=== PATIENT | female | born 1985 | race African-American/Black ===

== ENCOUNTER 2020-08-02 11:53 | Outpatient (RCR) | payer OTHER, SELFPAY ==
[2020-08-04] MEDS: RHO(D) IMMUNE GLOBULIN 300 MCG SYRINGE IM (11:00)
== END 2020-10-31 23:59 | disposition home or self-care (01) ==
LOC: ANHLAB 11:53
PROVIDERS: Visit Provider Obstetrics & Gynecology
DX: O09.899 Supervision of other high risk pregnancies, unspecified trimester (principal); O36.0990 Maternal care for other rhesus isoimmunization, unspecified trimester, not applicable or unspecified; Z3A.00 Weeks of gestation of pregnancy not specified
CPT/HCPCS: 36415; 85461; 90384; 96372; J2790

== ENCOUNTER 2020-10-14 11:49 | Outpatient (RCR) | payer OTHER, SELFPAY ==
[2020-08-04] MEDS: TETANUS,DIPHTHERIA,AC PERTUSSIS ADULT (0.5 ML) BOOSTRIX IM (11:18)
[2020-08-04 11:52] VITALS: BP 122/58; PULSE 85
[2020-08-12 14:52] VITALS: BP 94/55; PULSE 86
[2020-08-17 13:03] VITALS: BP 123/64; PULSE 92
[2020-08-23 13:07] VITALS: BP 121/64; PULSE 99
[2020-08-30 14:46] VITALS: BP 126/63; PULSE 99
[2020-09-06 10:25] VITALS: BP 114/62
--- NOTE | 2020-09-17 17:12 | PC.NURSE ---
DISCUSSED THE DECEL IN THE BEGINNING OF THE TRACING AND REACTIVE AN HOUR AFTER. WILL SEND FOR BPP AND CHECK CERVIX B/C 34.5
[2020-09-17 17:28] VITALS: BP 125/72; PULSE 110
[2020-09-23 12:56] VITALS: BP 125/73; PULSE 96
[2020-10-02 11:13] VITALS: BP 114/76; PULSE 106
--- NOTE | ~2020-10-14 | US_ITS ---
EXAMINATION: US OB BPP wo non-stress EXAM DATE: 09/17/2020 17:23 INDICATION: decel in the beginning of nonstress test. 3rd trimester. TECHNIQUE: Pelvic obstetrical transabdominal sonogram was performed by a technologist. There are mu ltiple grayscale and Doppler images available for interpretation. There are no earlier studies of th is gestation for comparison. FINDINGS: There is a single fetus identified in vertex presentation with a heart rate of 161 beats pe r minute. The placenta is located in the fundal position. There is no sonographic evidence of retrop lacental hemorrhage identified. BIOPHYSICAL PROFILE (performed by the technologist) breathing (30 sec sustained breathing in 30 minutes): 2 out of 2 movement (3 gross body movements in 30 minutes): 2 out of 2 tone (one episode of afrhena-zddyiitus-omuejhu limb movement): 2 out of 2 Amniotic fluid pocket (2 cm): 2 out of 2 Total score: 8 out of 8 IMPRESSION: 1. Single fetus with heart rate of 161 bpm. 2. Normal biophysical profile score of 8 out of 8. Reviewed, dictated and finalized at location A.
[2020-10-14 12:36] VITALS: BP 111/66; PULSE 87
== END 2020-10-16 07:48 | disposition home or self-care (01) ==
LOC: ANHOBOP 11:49
PROVIDERS: Visit Provider Obstetrics & Gynecology
DX: O09.513 Supervision of elderly primigravida, third trimester (principal); O26.86 Pruritic urticarial papules and plaques of pregnancy (PUPPP); Z3A.29 29 weeks gestation of pregnancy; Z3A.30 30 weeks gestation of pregnancy; Z3A.31 31 weeks gestation of pregnancy; Z3A.32 32 weeks gestation of pregnancy; Z3A.33 33 weeks gestation of pregnancy; Z3A.35 35 weeks gestation of pregnancy; Z3A.36 36 weeks gestation of pregnancy; Z3A.37 37 weeks gestation of pregnancy; Z3A.39 39 weeks gestation of pregnancy
CPT/HCPCS: 59025; 76819; 90715

== ENCOUNTER 2020-10-15 11:58 | Inpatient (IN) | payer OTHER, SELFPAY ==
--- NOTE | 2020-09-23 14:12 | PC.NURSE ---
VERIFIED WITH OR SCHEDULE AND PATIENT -C/S ON 10/17/20 AT 0730 PATIENT GIVEN REQUISITION FOR PRE-OP LAB DRAW ON 10/16/20
[2020-10-15] VITALS (92 sets, daily range): BP systolic 113–143; BP diastolic 55–110; PULSE 25–121; RESP 13–18; TEMP 36.1–36.9; O2SAT 93–100; BMI 38.0
[2020-10-15] MEDS: AMPICILLIN 2 GM/NS 100 ML 2 GM/100 ML BAG IVPB (12:57)
[2020-10-15] MEDS: LACTATED RINGERS 1,000 ML 125 ML IV CONT ×2 (12:59→13:55)
[2020-10-15 13:00] LABS: Basophils Percent Auto 0.4 % (0.2-1.2); Eosinophils Absolute Auto 0.1 K/mm3 (0-0.3); Eosinophils Percent Auto 0.6 % (0-4.4); Hematocrit 37.3 % (37.0-47.0); Hemoglobin 12.2 g/dL (12.0-15.0); Immature Granulocyte Absolute 0.05 K/mm3 (0.00-0.031); Immature Granulocyte Percent A 0.6 % (0-0.5); Immature Platelet Fraction Pct 14.8 % (0.9-11.2); Lymphocytes Absolute Auto 2.35 K/mm3 (0.9-3.2); Lymphocytes Percent Auto 29.6 % (18.3-44.2); Mean Corpuscular HGB Conc 32.7 g/dl (32-36); Mean Corpuscular Hemoglobin 26.1 pg (26-34); Mean Corpuscular Volume 79.9 fl (80-100); Mean Platelet Volume 12.3 fl (7.4-10.4); Monocytes Absolute Auto 0.7 K/mm3 (0.1-0.6); Monocytes Percent Auto 8.8 % (2.6-8.5); Neutrophils Absolute Auto 4.8 K/mm3 (1.3-6.7); Platelet Count Result 210 k/mm3 (150-375); Red Blood Count 4.67 M/mm3 (4.2-5.4); Red Cell Distribution Width 16.9 % (11.5-14.5); White Blood Count 7.9 K/mm3 (4.5-10.0)
--- NOTE | 2020-10-15 13:25 | PM.IMHP ---
H&P: HPI History of Present Illness Date/Time: 10/15/20 13:25 Chief complaint: Contractions. Narrative: Sherman Ni is a 35 year old female at 39 2/7 weeks by LMP of 01/14/20 with EDC 10/20/20 consistent with a 12 week ultrasound, admitted in active labor. She started having contractions at 0945. She presented to labor and delivery 1 cm dilated completely effaced and progressed rapidly to 6. 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 Blood type O neg. Ab neg. Rhogam given. Review of Systems Review of Systems: All systems reviewed & are unremarkable except as noted in HPI and below Constitutional: Constitutional: Reports no additional constitutional complaints and Denies headache(s) Eyes: Eyes: Denies spots in vision ENT: Reports system reviewed and no additional complaints, except as documented and Denies headache(s) Cardiovascular: Cardiovascular: Denies chest pain and Denies dyspnea Respiratory: Respiratory: Denies dyspnea Gastrointestinal: Gastrointestinal: Reports no additional gastrointestinal complaints Genitourinary: Genitourinary: Reports amenorrhea Musculoskeletal: Musculoskeletal: Reports no additional musculoskeletal complaints Integumentary/Breasts: Skin/Breast: Denies breast mass and Denies rash Neurologic: Denies headache(s) Psychiatric: Psychiatric: Reports no additional psychiatric complaints [facility] Past Medical History Medical History (Updated 10/15/20 @ 13:35 by Prakash Ortiz MD) Multiple sclerosis Supervision of other high risk pregnancies, unspecified trimester Surgical History Surgical History H/O: Family History Family History Grandparent Diabetes mellitus Family history of coronary artery disease, Onset Age: 66 Hypertension Cerebrovascular accident Family history of elevated blood lipids Mother Hypertension Social History Social History Smoking status: Never smoker Second hand tobacco smoke exposure: No Alcohol intake: never Substance use: former Substance use type: marijuana Gender identity (if verbalized by the patient): Female Spiritual care concerns: No Meds Home Medications and Allergies Home Medications Medication Instructions Recorded Confirmed Type ferrous sulfate 325 mg (65 mg 325 mg PO DAILY #30 tablet 09/29/20 10/14/20 Rx iron) tablet PNV cmb#95-ferrous fumarate-FA 1 tablet PO DAILY 10/02/20 10/14/20 History [] docusate sodium 100 mg capsule 100 mg PO BID #30 cap 10/03/20 10/14/20 Rx Allergies Allergy/AdvReac Type Severity Reaction Status Date / Time No Known Allergies Allergy Unknown Verified 10/14/20 13:06 Exam Const: General: no acute distress Eyes: General: appearance normal, both eyes and all related structures Resp: Effort & Inspection: normal respiratory effort Cardio: Rate: regular rate GI: Other: Gravid no fundal tenderness no right upper quadrant pain : External Female Exam: normal external appearance Manual OB Exam: dilated 6 cm, effaced fully and station high Skin: General skin exam: no rashes or lesions noted Neuro: Cognition (Neuro): normal cognition Extrem: General: normal to inspection Psych: Mental Status: mental status grossly normal H&P: Results Labs Labs: Short CBC 10/15/20 Range/Units 12:28 WBC 7.9 (4.5-10.0) K/mm3 Hgb 12.2 (12.0-15.0) g/dL Hct 37.3 (37.0-47.0) % Plt Count 210 (150-375) k/mm3 Assessment and Plan
--- NOTE | 2020-10-15 14:08 | WPDANESEPPF ---
Anes - Initial Pre Proc Eval Procedure: Operation Date: 10/17/20 07:30 Proposed Procedures p Repeat Section - Prakash Ortiz MD Date/Time: 10/15/20 14:08 Surgeon: Prakash Ortiz MD Pre Op Diagnosis: Contractions. Patient Data Age: 35 Gender: F Height: 1.7 m Weight: 110 kg Last Vital Signs Pulse 84 10/15/20 14:05 BP 131/72 10/15/20 14:05 Pulse Ox 100 10/15/20 14:05 Allergies Allergy/AdvReac Type Severity Reaction Status Date / Time No Known Allergies Allergy Unknown Verified 10/14/20 13:06 Home Medications Medication Instructions Recorded Confirmed Type ferrous sulfate 325 mg (65 mg 325 mg PO DAILY #30 tablet 09/29/20 10/15/20 Rx iron) tablet PNV cmb#95-ferrous fumarate-FA 1 tablet PO DAILY 10/02/20 10/15/20 History [] docusate sodium 100 mg capsule 100 mg PO BID #30 cap 10/03/20 10/15/20 Rx Laboratory Tests 10/15/20 10/15/20 12:28 12:28 WBC 7.9 K/mm3 K/mm3 (4.5-10.0) RBC 4.67 M/mm3 M/mm3 (4.2-5.4) Hgb 12.2 g/dL g/dL (12.0-15.0) Hct 37.3 % % (37.0-47.0) MCV 79.9 fl L fl (80-100) MCH 26.1 pg pg (26-34) MCHC 32.7 g/dl g/dl (32-36) RDW 16.9 % H % (11.5-14.5) Plt Count 210 k/mm3 k/mm3 (150-375) MPV 12.3 fl H fl (7.4-10.4) Immature Gran % (Auto) 0.6 % H % (0-0.5) Neut % (Auto) 60.0 % % (45.5-73.1) Lymph % (Auto) 29.6 % % (18.3-44.2) [place] % (Auto) 8.8 % H % (2.6-8.5) Eos % (Auto) 0.6 % % (0-4.4) Baso % (Auto) 0.4 % % (0.2-1.2) Lymph # (Auto) 2.35 K/mm3 K/mm3 (0.9-3.2) [place] # (Auto) 0.7 K/mm3 H K/mm3 (0.1-0.6) Eos # (Auto) 0.1 K/mm3 K/mm3 (0-0.3) Baso # (Auto) 0.0 K/mm3 K/mm3 (0.0-0.1) Abs Immat Gran (auto) 0.05 K/mm3 H K/mm3 (0.00-0.031) Absolute Neuts (auto) 4.8 K/mm3 K/mm3 (1.3-6.7) Absolute Nucleated RBC 0.0 K/mm3 K/mm3 (0.0-0.012) Nucleated RBC % 0.0 % % (0.0-0.2) % Immature Plt Fraction 14.8 % H % (0.9-11.2) RPR Pending Patient hx anesthesia problems: none Family hx anesthesia problems: none PMFSH Past Medical History Medical History (Updated 10/15/20 @ 13:35 by Prakash Ortiz MD) Multiple sclerosis Supervision of other high risk pregnancies, unspecified trimester Surgical History Surgical History H/O: Family History Family History Grandparent Diabetes mellitus Family history of coronary artery disease, Onset Age: 66 Hypertension Cerebrovascular accident Family history of elevated blood lipids Mother Hypertension Social History Social History Smoking status: Never smoker Second hand tobacco smoke exposure: No Alcohol intake: never Substance use: former Substance use type: marijuana Gender identity (if verbalized by the patient): Female Spiritual care concerns: No Anes - Eval Final PreProcedure Day of Procedure 10/15/20 14:08 Patient weight: obese Heart: regular rate and rhythm Lungs: clear to auscultation and normal air movement Airway: Mallampati scale class II Neurological: alert and oriented Last oral intake: >/= 8 hours ASA classification: II Emergent: no Anesthetic plan: proceed Anesthesia type and monitoring: regional epidural and standard monitoring Informed Consent: The patient's anesthetic plan and its attendant risks and benefits were discussed with the patient/family/POA. Questions were solicited and answers provided to the satisfaction of the patient/family/POA.
--- NOTE | 2020-10-15 15:48 | P.OP_ITS ---
Procedure Note - Detailed Date of procedure: 10/16/20 Pre-op diagnosis: Contractions. 1.Active labor 2. Elective repeat ceserean section. 3. Positive GBS carrier Post-op diagnosis: same Procedure performed: Repeat low transverse cesearean section Description of procedure: After informed consent was obtained patient was taken to the operating room and adequate spinal anesthesia was administered. She was placed in supine position and prepped and draped in sterile fashion. Attention was turned to the abdomen and a Pfannenstiel skin incision was made along her prior Pfannenstiel scar. The subcutaneous tissue was dissected with scalpel and cautery. The fascia was incised in the midline stented bilaterally with Mae scissors. The fascia was from rectus muscle superiorly and inferiorly bluntly and sharply. Scar tissue of the abdominal muscles to the fascia was lysed with cautery and Mae scissors. The midline was identified the midline was entered and the peritoneum was entered. The pelvic organs were visualized. The lower uterine segment and vesico-uterine peritoneum was visualized. The bladder was dissected below lower uterine segment. The lower uterine segment was noted to be thin. It was intact. A low-transverse uterine incision was made and the amniotic cavity was entered. Dark meconium stained fluid was noted. The uterine incision was extended bluntly. The head was delivered. A loose nuchal cord was manually reduced. The rest of the was delivered. The was vigorously crying upon delivery. The cord was doubly clamped and cut and the was handed to nursery staff in attendance. Cord segment was obtained for cord gases. Cord blood was obtained. The placenta was removed manually. The uterine cavity was sponge curetted. The uterus was noted to have good tone. The uterus was exteriorized the incision of the uterus was closed in a running locking fashion with 0 Vicryl and a 2nd umbricating stitch of 0 Vicryl. Hemostasis was noted. The posterior cul-de-sac was irrigated. Uterus was placed back into the abdomen. The paracolic gutters were irrigated the uterine incision was inspected again and noted to be hemostatic. Interceed adhesion barrier was placed at the lower uterine segment and anterior uterus. The omentum was placed over the site. The fascia was closed in a running fashion with 0 Vicryl with 2 sutures. The subcutaneous tissue was irrigated. Hemostasis obtained with cautery. The skin incision closed with 4.0 vicryl on a [place] needle. The uterus was firm at umbilicus The QBL was 475cc. Sponge count was correct x3. The patient tolerated procedure well and was taken to recovery in stable condition. Anesthesia: spinal Surgeon: Prakash Ortiz MD Estimated blood loss (mL): 475 Urine output (mL): 100 Drains: No Packing: No Pathology: none sent Complications: No immediate complications Condition: stable Disposition: floor (Recovery) Findings: 9lb male apgars 8,9, normal appearing ovaries fallopian tubes bilaterally. Small left parafallopian tube cyst seen.
[2020-10-15] MEDS: OXYTOCIN 30 UNITS/NS 500 ML 30 UNITS/500 ML BAG 125 UNITS IV CONT (17:45)
[2020-10-15] MEDS: MORPHINE SULFATE (*CRX) 2 MG/ML INJ IV PUSH (18:36)
--- NOTE | 2020-10-15 18:48 | OBPPTRN ---
Patient transferred to post room # 280 via stretcher. Support person and present. Oriented to unit, room, information board, rooming in, admission packet and security measures. Patient verbalizes understanding.
[2020-10-15] MEDS: SIMETHICONE 80 MG TAB.CHEW PO (21:38)
[2020-10-15] MEDS: ACETAMINOPHEN 325 MG TABLET 650 MG PO (21:38)
[2020-10-15] MEDS: DEXTROSE 5%/0.45% SOD CHL 1,000 ML 125 ML IV CONT (22:14)
[2020-10-15] MEDS: IBUPROFEN 600 MG TABLET PO (23:25)
[2020-10-16] VITALS (7 sets, daily range): BP systolic 111–128; BP diastolic 68–85; PULSE 68–86; RESP 16–18; TEMP 36.6–37.1; O2SAT 98
[2020-10-16] MEDS: HYDROcodone/acetaminophen (*CRX) 5-325 MG TABLET 1 TAB PO ×4 (05:11→19:04)
[2020-10-16 05:45] LABS: Basophils Percent Auto 0.2 % (0.2-1.2); Eosinophils Percent Auto 0.5 % (0-4.4); Hematocrit 30.4 % (37.0-47.0); Hemoglobin 10.1 g/dL (12.0-15.0); Immature Granulocyte Absolute 0.04 K/mm3 (0.00-0.031); Immature Granulocyte Percent A 0.5 % (0-0.5); Immature Platelet Fraction Pct 12.3 % (0.9-11.2); Lymphocytes Absolute Auto 1.26 K/mm3 (0.9-3.2); Lymphocytes Percent Auto 14.8 % (18.3-44.2); Mean Corpuscular HGB Conc 33.2 g/dl (32-36); Mean Corpuscular Hemoglobin 26.5 pg (26-34); Mean Corpuscular Volume 79.8 fl (80-100); Mean Platelet Volume 13.4 fl (7.4-10.4); Monocytes Absolute Auto 0.6 K/mm3 (0.1-0.6); Monocytes Percent Auto 6.6 % (2.6-8.5); Neutrophils Absolute Auto 6.6 K/mm3 (1.3-6.7); Neutrophils Percent Auto 77.4 % (45.5-73.1); Platelet Count Result 153 k/mm3 (150-375); Red Blood Count 3.81 M/mm3 (4.2-5.4); Red Cell Distribution Width 16.9 % (11.5-14.5); White Blood Count 8.5 K/mm3 (4.5-10.0)
--- NOTE | 2020-10-16 07:57 | WPDANLDPN2 ---
Anes-Prog Note L&D Date/Time: 10/16/20 07:57 Comfortable throughout: section Neuraxial method: spinal Epidural/Spinal procedure site: clean & non-tender Neuro status: Neuro function grossly intact. Cardiovascular status: normal Respiratory status: normal Airway patency: baseline Mental status: baseline Post-Op hydration status: normal Vital Signs: Last Vital Signs Temp 36.8 C 10/16/20 06:43 Pulse 68 10/16/20 06:43 Resp 18 10/16/20 06:43 BP 112/68 10/16/20 06:43 Pulse Ox 98 10/16/20 06:43 Pain score (VAS): 1 I/O: Intake & Output 10/15/20 10/15/20 10/16/20 15:59 23:59 07:59 Intake Total 1100 700 416 Output Total 100 575 800 Balance 1000 125 -384 Post-procedural complaints: none Patient feedback: Patient satisfied with anesthetic care.
--- NOTE | 2020-10-16 07:58 | WPDANLDNPN2 ---
Anes-Prog Note L&D-Neuraxial Date/Time: 10/16/20 07:58 Neuraxial medications: intrathecal PF morphine Opiod-related complaints: none Patient feedback: Patient satisfied with post-operative pain management.
--- NOTE | 2020-10-16 08:00 | PC.NURSE ---
PT introductions made and plan of care discussed per post op csection, pain management, breast feeding, daily care activities. PT verbalized understanding of such care.
--- NOTE | 2020-10-16 08:38 | P.PNOB_ITS ---
OB - PN: Subj Subjective Date/time seen: 10/16/20 08:38 She reports adequate pain control. Has got up to the bathroom. Positive flatus. Tolerated crackers and fluids. Positive flatus. Lochia decreasing. No leg pain. Baby doing well. OB - PN: Obj Data Labs CBC & Chem 7: 10/16/20 05:17 Labs: Laboratory Results - last 24 hr 10/15/20 10/15/20 10/16/20 12:28 12:28 05:17 WBC 7.9 RBC 4.67 Hgb 12.2 Hct 37.3 MCV 79.9 L MCH 26.1 MCHC 32.7 RDW 16.9 H Plt Count 210 MPV 12.3 H Immature Gran % (Auto) 0.6 H Neut % (Auto) 60.0 Lymph % (Auto) 29.6 [place] % (Auto) 8.8 H Eos % (Auto) 0.6 Baso % (Auto) 0.4 Lymph # (Auto) 2.35 [place] # (Auto) 0.7 H Eos # (Auto) 0.1 Baso # (Auto) 0.0 Abs Immat Gran (auto) 0.05 H Absolute Neuts (auto) 4.8 Absolute Nucleated RBC 0.0 Nucleated RBC % 0.0 % Immature Plt Fraction 14.8 H Blood Type O Negative O Negative Antibody Screen Negative TNP Screen Negative Baby's Blood Type A pos Baby's KATHI Positive Doses of RhIg Required 1 10/16/20 05:17 WBC 8.5 RBC 3.81 L Hgb 10.1 L Hct 30.4 L MCV 79.8 L MCH 26.5 MCHC 33.2 RDW 16.9 H Plt Count 153 MPV 13.4 H Immature Gran % (Auto) 0.5 Neut % (Auto) 77.4 H Lymph % (Auto) 14.8 L [place] % (Auto) 6.6 Eos % (Auto) 0.5 Baso % (Auto) 0.2 Lymph # (Auto) 1.26 [place] # (Auto) 0.6 Eos # (Auto) 0.0 Baso # (Auto) 0.0 Abs Immat Gran (auto) 0.04 H Absolute Neuts (auto) 6.6 Absolute Nucleated RBC 0.0 Nucleated RBC % 0.0 % Immature Plt Fraction 12.3 H Blood Type Antibody Screen Screen Baby's Blood Type Baby's KATHI Doses of RhIg Required OB - PN A/P Assessment and Plan (1) Active labor: Status: Acute (2) Status post section: Code(s): Z98.891 - History of uterine scar from previous surgery Status: Acute Assessment and Plan: She is doing well. Advance diet to regular. Routine post op care. Time Spent With Patient Time: Total time spent is greater than 50% in coordination of care (as documented) at patient's floor/unit and/or counseling patient: Exam Const: General: comfortable and no acute distress Resp: Effort & Inspection: normal respiratory effort GI: Other: Uterus appropriate tenderness at umbilicus. Incision intact no drainage erythema or induration. : Other: Pad- scant lochia. Extrem: Other: nontender, 1+ edema bilat Psych: Mental Status: mental status grossly normal Affect: normal affect
[2020-10-16] MEDS: DOCUSATE SODIUM 100 MG CAPSULE PO ×2 (09:33→18:27)
[2020-10-16] MEDS: MULTIVIT/MIN/PREN/FOL AC/IRON TABLET 1 TAB PO (09:34)
[2020-10-16] MEDS: SIMETHICONE 80 MG TAB.CHEW PO ×3 (09:34→21:00)
[2020-10-16] MEDS: FERROUS SULFATE 324 MG TABLET PO (09:35)
[2020-10-16] MEDS: IBUPROFEN 600 MG TABLET PO ×2 (09:37→18:27)
[2020-10-16] MEDS: LANOLIN (LANSINOH) 7.5 GM CREAM 1 APPLIC TOPICAL (09:39)
[2020-10-16 09:50] LABS: Rapid Plasma Reagin Non-Reactive (NonReactive)
--- NOTE | 2020-10-16 10:10 | PC.NURSE ---
Consulted with patient, mother reports tenderness with feeding. Reviewed infant feeding cues, frequencies, duration of feedings, feeding elimination flow sheet, and signs of adequate intake. Demonstrated stimulation techniques to wake infant for feeding. Nipple care reviewed. Requested mother to call out next feeding for LC assistance. Instructed feeding should be initiated three hours from start of last feeding or if feeding cues are noted before. Mother voiced understanding of information shared.
[2020-10-16] MEDS: RHO(D) IMMUNE GLOBULIN 300 MCG SYRINGE IM (18:53)
[2020-10-16] MEDS: HYDROcodone/acetaminophen (*CRX) 10-325 MG TABLET 1 TAB PO (22:25)
[2020-10-17] MEDS: SIMETHICONE 80 MG TAB.CHEW PO ×2 (04:20→07:29)
[2020-10-17] MEDS: IBUPROFEN 600 MG TABLET PO (04:20)
[2020-10-17] MEDS: HYDROcodone/acetaminophen (*CRX) 5-325 MG TABLET 1 TAB PO ×2 (04:20→07:29)
[2020-10-17] MEDS: DOCUSATE SODIUM 100 MG CAPSULE PO (07:26)
[2020-10-17] MEDS: MULTIVIT/MIN/PREN/FOL AC/IRON TABLET 1 TAB PO (07:26)
[2020-10-17] MEDS: FERROUS SULFATE 324 MG TABLET PO (07:26)
--- NOTE | 2020-10-17 08:28 | P.PNOB_ITS ---
OB - PN: Subj Subjective Date/time seen: 10/17/20 08:28 Interval history: Doing well afebrile Ambulating and urinating without difficulty Lochia is less than her menses. Patient comments: no complaints, pain well controlled, tolerating diet and flatus present Humphrey baby status: doing well and bottle feeding well Humphrey feeding status: exclusively bottle feeding OB - PN: Obj Data Labs CBC & Chem 7: 10/16/20 05:17 Labs: Laboratory Results - last 24 hr 10/15/20 10/16/20 12:28 05:17 RPR Non-reactive Blood Type O Negative Antibody Screen TNP Screen Negative Baby's Blood Type A pos Baby's KATHI Positive Doses of RhIg Required 1 OB - PN A/P Plan Plan: routine care, discharge home and other (f.u in 2 week for incision checkup) Time Spent With Patient Time: Total time spent is greater than 50% in coordination of care (as documented) at patient's floor/unit and/or counseling patient: Time with patient: 15 - 25 minutes Review of Systems Constitutional: Constitutional: Reports as per HPI, Denies chills, Denies fever(s) and Denies headache(s) Eyes: Eyes: Reports as per HPI ENT: Reports as per HPI and Reports Normal hearing present Cardiovascular: Cardiovascular: Reports as per HPI, Denies chest pain and Denies dyspnea Respiratory: Respiratory: Reports as per HPI, Denies cough and Denies dyspnea Gastrointestinal: Gastrointestinal: Reports as per HPI, Denies abdominal pain, Denies nausea and Denies vomiting Genitourinary: Genitourinary: Reports as per HPI Neurologic: Reports Normal hearing present Psychiatric: Psychiatric: Reports as per HPI Endocrine: Endocrine: Reports as per HPI Exam Const: General: cooperative, healthy appearing, comfortable, no acute distress, well developed, alert, awake, Physically active and well groomed Nutritional Appearance: well nourished Orientation/consciousness: patient oriented x3 Limitations: no limitations HENMT: Head: normal to inspection Ears: hearing grossly normal bilaterally Resp: Effort & Inspection: normal respiratory effort and able to speak in complete sentences Auscultation: clear to auscultation bilaterally Cardio: Rate: regular rate Rhythm: regular rhythm GI: Inspection: normal to inspection and other (Incision: C/D/I) GI Palp: No abdominal tenderness, Yes Soft to palpation and No Guarding due to palpation present (GI) Auscultation: normal bowel sounds Rectal Exam: deferred
--- NOTE | 2020-10-17 08:31 | PM.OBDSVD ---
DS: Admitting Diagnosis Admitting Diagnosis Admitting Diagnosis: Contractions. OB - DS: Summary OB Procedures : None OB Procedures Intrapartum: low cervical, transverse OB Procedures: : None Peripartum Data Procedures: Procedures Operation Date: 10/15/20 14:15 Actual Procedures Side Surgeon p Repeat Section Prakash Ortiz MD Time Spent with Patient Time attestation: Total time spent providing and/or coordinating discharge services: Exam Const: General: cooperative, healthy appearing, comfortable, no acute distress, well developed, alert, awake, Physically active and well groomed Nutritional Appearance: well nourished Orientation/consciousness: patient oriented x3 Limitations: no limitations Resp: Effort & Inspection: normal respiratory effort and able to speak in complete sentences Auscultation: clear to auscultation bilaterally Cardio: Rate: regular rate Rhythm: regular rhythm GI: Inspection: normal to inspection and non-distended GI Palp: No abdominal tenderness, Yes Soft to palpation, No Guarding due to palpation present (GI) and Yes Other GI palpation findings present (Incision: C/D/I) Auscultation: normal bowel sounds Rectal Exam: deferred DS: Data Data Completed and Pending Pending studies at discharge: Pending at discharge 10/15/20 15:09 Surgical [PTH] Routine Labs on day of discharge: Labs from last 24 hours 10/16/20 10/15/20 05:17 12:28 RPR Non-reactive Blood Type O Negative Antibody Screen TNP Screen Negative Baby's Blood Type A pos Baby's KATHI Positive Doses of RhIg Required 1 Discharge Plan Discharge Attending physician on discharge: Prakash Ortiz Discharging Clinician: Rosy Bowser Patient Disposition: Home, Self-Care Activity: may shower, no driving and pelvic rest Diet: regular Wound Care Instructions: incision open to air Patient Instructions: Antibiotic Form Stand Alone Forms: General Discharge Information Follow-up/Referrals: Prakash Ortiz MD [Physician] - Discharge Medications: New ibuprofen 600 mg Tablet 600 mg PO Q6H PRN (Reason: Cramping) Qty: 60 RF: 0 hydrocodone-acetaminophen 5-325 mg Tablet 1 tab PO Q3H PRN (Reason: Moderate Pain (4-6)) Qty: 30 RF: 0 Continued docusate sodium [Colace] 100 mg capsule 100 mg PO BID Qty: 30 RF: 0 PNV cmb#95-ferrous fumarate-FA [] 28 mg iron- 800 mcg Tablet 1 tablet PO DAILY RF: 0 ferrous sulfate 325 mg (65 mg iron) tablet 325 mg PO DAILY Qty: 30 RF: 1 Date of admission: 10/15/20 11:58 Primary Care Provider: PHYSICIAN,CHEMICAL PROJECT ENGINEER Admitting Provider: Prakash Ortiz Attending physician on admission: Prakash Ortiz Condition: Stable
[2020-10-17 08:50] VITALS: BP 124/76; PULSE 81; RESP 18; TEMP 36.6; O2SAT 99
--- NOTE | 2020-10-17 09:15 | PC.NURSE ---
Consult with pt., mother states she had decided to formula feed. Mother will be returning to classes and will not have the time to pump when away from the baby. Mother reports her goal was to breastfeed the first few days for colostrum and planned to switch to formula. Reviewed engorgement/relief. Mother has no further questions at this time.
--- NOTE | 2020-10-17 10:15 | PC.NURSE ---
Patient received instruction on viewing the discharge video Mother & Baby Care, The First Two Weeks . Patient was given the opportunity and encouraged to ask questions. Patient verbalized understanding of information shared and has been given the mother/baby guide for home reference.
== END 2020-10-17 13:04 | disposition home or self-care (01) | DRG 540 ==
LOC: ANHLDR 13:46 → ANHOB2 19:21
PROVIDERS: Admitting Provider Obstetrics & Gynecology; Visit Provider Obstetrics & Gynecology
PROC: (CPT 59514; principal; 2020-10-17 07:30)
DX: O34.211 Maternal care for low transverse scar from previous cesarean delivery (principal); O99.824 Streptococcus B carrier state complicating childbirth; O36.63X0 Maternal care for excessive fetal growth, third trimester, not applicable or unspecified; O99.354 Diseases of the nervous system complicating childbirth; G35 Multiple sclerosis; O99.344 Other mental disorders complicating childbirth; O77.0 Labor and delivery complicated by meconium in amniotic fluid; O69.81X0 Labor and delivery complicated by cord around neck, without compression, not applicable or unspecified; N83.8 Other noninflammatory disorders of ovary, fallopian tube and broad ligament; Z3A.39 39 weeks gestation of pregnancy; Z37.0 Single live birth; Z23 Encounter for immunization
CPT/HCPCS: 36415; 85025; 85055; 85461; 86592; 86850; 86900; 86901; 88307; 90384; 90471; 90653; A9270; G0008; J0131; J0290; J2270; J2274; J2405; J2590; J2790; J7120

== ENCOUNTER 2024-08-03 19:32 | Emergency (ER) | payer OTHER, SELFPAY ==
--- NOTE | ~2024-08-03 | XR_ITS ---
EXAMINATION: XR foot LT min 3V DATE: 08/03/2024 21:06 INDICATION: Left foot pain. TECHNIQUE: 3 views of left foot were obtained. COMPARISON: None. FINDINGS: Bone alignment is normal. No fracture. Joint spaces are normal. IMPRESSION: 1. Normal left foot. Reviewed, dictated and finalized at location A. IMPRESSION: 1. Normal left foot.
[2024-08-03 20:09] VITALS: BP 133/81; PULSE 93; RESP 18; TEMP 36.8; O2SAT 100
--- NOTE | 2024-08-03 22:16 | ED.LOWEXIN ---
HPI - Extremity Injury (Lower) General Chief Complaint: Extremity Injury, Lower Stated Complaint: thinks L foot is broken Time Seen by Provider: 08/03/24 21:27 History of Present Illness HPI Narrative: Pt is a 38-year-old female who presents to the ER with complaints of L ankle pain following a fall in the shower. She reports she was shaving her legs, lost her balance, and fell. Pt isn't sure if she twisted her L ankle or fell on it. Pt has been using Tylenol and Ibuprofen for pain. She has also kept an [place] wrap on her L ankle. She endorses pain with movement, bruising, and swelling. Pt denies tingling/weakness, chest pain, or shortness of breath. Related Data Home Medications Medication Instructions Recorded Confirmed cyanocobalamin (vitamin B-12) 2,000 mcg PO DAILY 04/02/21 06/28/24 2,000 mcg tablet,extended release (Vitamin B-12 ER) ergocalciferol (vitamin D2) 50 mcg 50 mcg PO DAILY 04/02/21 06/28/24 (2,000 unit) capsule omega 6-[id number]-fish oil 300 1 cap PO DAILY 04/02/21 06/28/24 mg-1,000 mg capsule Allergies Allergy/AdvReac Type Severity Reaction Status Date / Time No Known Allergies Allergy Unknown Verified 08/03/24 21:32 Review of Systems Review of Systems: All systems reviewed & are unremarkable except as noted in HPI and below PMFSH Past Medical History Medical History Multiple sclerosis Supervision of other high risk pregnancies, unspecified trimester Surgical History Surgical History H/O: Status post section Family History Family History Grandparent Diabetes mellitus Family history of coronary artery disease, Onset Age: 66 Hypertension Cerebrovascular accident Family history of elevated blood lipids Mother Hypertension Social History Social History Smoking status: Never smoker Second hand tobacco smoke exposure: No Alcohol intake: never Substance use: never Substance use type: marijuana Living arrangements: with family Gender identity (if verbalized by the patient): Female Spiritual care concerns: No Exam Narrative: GENERAL: Well appearing, well-nourished, non-toxic, in no acute distress. RESPIRATORY: Airway patent, respirations nonlabored. CARDIOVASCULAR: Peripheral pulses 2+ and equal bilaterally. MUSCULOSKELETAL: Moves all extremities. Strength/ROM intact without gross deformities. SKIN: Warm, dry, normal color. No rashes. Pt has some mild bruising along the lateral portion of her upper L foot between the 4th and 5th metatarsals. Course Vital Signs Vital signs: Vital Signs Temperature 36.8 C 08/03/24 20:09 Pulse Rate 93 08/03/24 20:09 Respiratory Rate 18 08/03/24 20:09 Blood Pressure 133/81 08/03/24 20:09 Pulse Oximetry 100 08/03/24 20:09 Temperature 36.8 C 08/03/24 20:09 Pulse Rate 93 08/03/24 20:09 Respiratory Rate 18 08/03/24 20:09 Blood Pressure 133/81 08/03/24 20:09 Pulse Oximetry 100 08/03/24 20:09 MDM - Extremity Injury (Lower) MDM Narrative Medical decision making narrative: Pt is a 38-year-old female who presents to the ER with complaints of L ankle pain following a fall in the shower. She reports she was shaving her legs, lost her balance, and fell. Pt isn't sure if she twisted her L ankle or fell on it. Pt has been using Tylenol and Ibuprofen for pain. She has also kept an [place] wrap on her L ankle. She endorses pain with movement, bruising, and swelling. Pt denies tingling/weakness, chest pain, or shortness of breath. Pt has some mild bruising along the lateral portion of her upper L foot between the 4th and 5th metatarsals. Plan for pt is to keep L ankle in an immobility device for the next week. She shoul
[2024-08-03 22:47] VITALS: BP 108/67; PULSE 67; O2SAT 99
== END 2024-08-03 23:19 | disposition home or self-care (01) ==
PROVIDERS: Emergency Provider Registered Nurse; PCP Nurse Practitioner
DX: S93.402A Sprain of unspecified ligament of left ankle, initial encounter (principal); W18.2XXA Fall in (into) shower or empty bathtub, initial encounter; G35 Multiple sclerosis
CPT/HCPCS: 73630; 99283